=== PATIENT | male | born 1950 | race Caucasian/White ===

== ENCOUNTER 2016-08-20 08:54 | Day surgery (SDC) | payer MEDICARE, OTHER ==
[~2016-08-20] VITALS: Ht 185.4 cm; Wt 114.4 kg
[2016-08-20] VITALS (8 sets, daily range): BP systolic 107–130; BP diastolic 68–86; PULSE 64–79; RESP 16–18; TEMP 97.6–98.1; O2SAT 94–96
[2016-08-20] MEDS ORDERED: MUPIROCIN 2% OINT 1 APPLIC/GM SYR NASAL SCH (09:45)
[2016-08-20] MEDS ORDERED: CHLORHEXIDINE GLUCONATE 2 % 1 PACK (2 CLOTHS) TOPICAL SCH (09:45)
[2016-08-20] MEDS ORDERED: POVIDONE IODINE 5% (ANTISEPSIS KIT) 4 APPLICATIONS EACH NARE SCH (09:45)
[2016-08-20] MEDS ORDERED: NO Heparin, Lovenox, Coumadin at least 12 hours prior to procedure. PRN (09:45)
[2016-08-20] MEDS ORDERED: Hold AM Insulin & AM Hypoglycemic medications in diabetic patients PRN (09:45)
[2016-08-20] MEDS ORDERED: LORazepam 1 MG TAB SL SCH (09:45)
[2016-08-20 09:56] LABS: AUTOMATED NEUTROPHIL # 4.2 TH/MM3 (1.8-7.7); BASOPHIL # 0.1 TH/MM3 (0-0.2); BASOPHIL % 1.1 % (0.0-2.0); EOSINOPHIL # 0.4 TH/MM3 (0-0.4); EOSINOPHIL % 5.5 % (0.0-4.0); HEMATOCRIT 43.3 % (39.0-51.0); HEMO FLAGS DIFF FINAL; LYMPHOCYTE # 1.9 TH/MM3 (1.0-4.8); MEAN CELL VOLUME 86.8 FL (80.0-100.0); MEAN CORPUSCULAR HEMOGLOBIN 28.5 PG (27.0-34.0); MEAN CORPUSCULAR HGB CONC 32.8 % (32.0-36.0); MONO % 8.8 % (0.0-8.0); NEUT % 58.6 % (16.0-70.0); PLATELET COUNT 165 TH/MM3 (150-450); RED BLOOD COUNT 4.99 MIL/MM3 (4.50-5.90); RED CELL DISTRIBUTION WIDTH 13.5 % (11.6-17.2); WHITE BLOOD COUNT 7.2 TH/MM3 (4.0-11.0)
[2016-08-20] MEDS ORDERED: LACTATED RINGER'S 1000 ML IV PRN (10:00)
[2016-08-20] MEDS ORDERED: INSULIN HUMAN REGULAR 1,000 UNITS/10 ML VIAL SQ PRN (10:00)
[2016-08-20] MEDS ORDERED: CHLORHEXIDINE GLUCONATE 2 % 1 PACK (2 CLOTHS) TOPICAL PRN (10:00)
[2016-08-20] MEDS ORDERED: SODIUM CHLORID 0.9% 500 ML IV PRN (10:00)
[2016-08-20] MEDS ORDERED: METOPROLOL TARTRATE 25 MG TAB PO PRN (10:00)
[2016-08-20] MEDS ORDERED: POVIDONE IODINE 5% (ANTISEPSIS KIT) 4 APPLICATIONS EACH NARE PRN (10:00)
[2016-08-20] MEDS ORDERED: SIMV10TA PO (10:03)
[2016-08-20] MEDS ORDERED: OMEGCAP PO (10:03)
[2016-08-20] MEDS ORDERED: CITA20TA4 PO (10:03)
[2016-08-20] MEDS ORDERED: METO25TA3 PO (10:03)
[2016-08-20] MEDS ORDERED: LORA-373 PO (10:03)
[2016-08-20] MEDS ORDERED: DILT120C9 PO (10:03)
[2016-08-20] MEDS ORDERED: BENA20TA PO (10:03)
[2016-08-20] MEDS ORDERED: MOBI7.5T PO (10:03)
[2016-08-20] MEDS ORDERED: ROFL1TAB2 PO (10:03)
[2016-08-20] MEDS ORDERED: ADVA45AE INH (10:03)
[2016-08-20] MEDS ORDERED: APIX5TAB PO (10:03)
[2016-08-20] MEDS ORDERED: OMEP20TA PO (10:03)
[2016-08-20 10:04] LABS: APTT (PATIENT) 27.2 SEC (24.3-30.1); PROTHROMBIN TIME - PATIENT 10.9 SEC (9.8-11.6)
[2016-08-20 10:17] LABS: BICARBONATE 26.9 MEQ/L (21.0-32.0); POTASSIUM 4.2 MEQ/L (3.5-5.1)
[2016-08-20] MEDS ORDERED: FUROSEMIDE 40 MG/4 ML VIAL ONE (11:06)
[2016-08-20] MEDS ORDERED: HEPARIN-D5W INJ 250 ML ONE (11:06)
[2016-08-20] MEDS ORDERED: ISOPROTERENOL HCL 1 MG/5 ML AMP ONE (11:06)
[2016-08-20] MEDS ORDERED: PROTAMINE SULFATE 50 MG/5 ML VIAL ONE (11:07)
[2016-08-20] MEDS ORDERED: MIDAZOLAM HCL 2 MG/2 ML VIAL ONE (11:07)
[2016-08-20] MEDS ORDERED: LEVOFLOXACIN 500 MG PREMIX INJ 100 ML IV ONE (11:07)
[2016-08-20] MEDS ORDERED: HEPARIN SODIUM - IV 10,000 UNITS/10 ML VIAL ONE (11:07)
[2016-08-20] MEDS ORDERED: SODIUM CHLOR 0.9% 250 ML INJ 250 ML ONE (11:07)
[2016-08-20] MEDS ORDERED: fentaNYL CITRATE 250 MCG/5 ML AMP ONE (11:07)
--- NOTE | 2016-08-20 14:07 | CATHPROC ---
[employer] HIS Report Study Information Study Number Scheduled Start Study Start [id number] 08/20/2016 Aug 20 2016 11:08AM Referring Institution Admit Source Facility Department 1 Other [facility] Physician and Clinical Staff Initial Crystal Aguirre Openstack Developer Roberta Clark,RT(R) TECH2 Openstack Developer Karen Cuenca,OPERATIONS DISPATCHER TECH2 Other Anesthesia, GIS MANAGER Recorder Farhana Barnes,RN Recorder Rozina Lebron,MADDIE Scrub Leonel Alcantara,RT(R) Procedures Performed Procedure Location (Site) Vessel Name Ablation Procedure CRYO Ablation LIPV LIPV CRYO Ablation LSPV LSPV CRYO Ablation RIPV RIPV CRYO Ablation RSPV RSPV ICE CATHETER INSERT RA Atruim Equipment Time Bear Keeper Description Size Mfg Part Number Used/Scraped COPILOT VALVE, BLEEDBACK [id number] 11:27 [employer] Used CONTROL *[id number] TRANSDUCER, TRUWAVE 11:27 [employer] * [id number] Used W/STOCKCOCK NEEDLE, TRANSSEPTAL NRG 98 11:27 [facility] [id number] Used C1 COVER, TRANSDUCER CABLE 11:27 [employer] [id number] Used ACUNAV 11:27 CONMED LEADWIRE, DEFIBRILLATION PAD 2001M-PC Used SHEATH SET, FR12 CHECK-BERE [id number]-[id number]-[id number] 11:27 COOK/PACER FR12 Used 13CM *[id number] 11:27 CORDIS/PACER SHEATH, FR10 PARVEEN 11CM FR 10 [id number] Used [id number] 11:27 [employer] INDUSTRIES PACK, CCL CUSTOM * Used *[id number] 11:27 [employer] PACER BERTRAND, LIMB * 2530 Used [id number] 11:27 [employer] MEDICAL SHEATH, FR4.5 PRELUDE 11CM FR 4.5 Used [id number] 11:27 [employer] MEDICAL WIRE, 3MMJ .035 180CM 180CM Used *[id number] 11:27 NAMIC MANIFOLD, 4 PORT * Used *[id number] 11:27 NAMIC TUBING, HIGH PRESSURE 20" 20" Used *[id number] 11:27 NAMIC TUBING, HIGH PRESSURE 48" 48" Used *[id number] 11:27 NAMIC TUBING, HIGH PRESSURE 48" 48" Used *[id number] TUBING, PRESSURE MONITORING [id number] 11:27 NAMIC PACER 72" Used 72" *[id number] 11:27 [employer] BLANKET,WARM AIR CCL * Used *[id number] 536281 11:27 [facility] [employer] CATHETER, JSN, QUAD FR 5 Used *[id number] 384023 11:27 [employer] MED[employer] CATHETER, JSN, QUAD FR 5 Used *[id number] 11:27 [employer] MEDICAL ELECTRODE KIT, ANGELIA X SURFACE * [id number] Used 11:27 [employer] SHEATH, EPS, FR6 FAST CATH FR 6 [id number] Used 11:27 [facility] [employer] SHEATH, EPS, FR7 FAST CATH FR 7 [id number] Used 11:27 [facility] [employer] SHEATH, EPS, FR8 FAST CATH FR 8 [id number] Used CATHETER, ACUNAV FR10 ICE [id number] 12:30 KEVIN FR 10 Used (KEVIN) *[id number] [facility] PAD, ELECTROSURGICAL 11:27 * [id number] Used SURGICAL GROUNDING (BLUE) 12:43 [employer] CABLE, ACHIEVE MAPPING * [id number] Used CATHETER, ACHEIVE MAPPING 12:43 [employer] * [id number] Used 20MM SHEATH, FR12 FLEXCATH 12:36 [employer] FR 12 [id number] Used STEERABLE Medication Medication Total Dose (Bolus/Oral) Medication Total Dosage/Unit 1% XYLOCAINE 40 mL HEPARIN 46522 units Medications (Bolus/Oral) Medication Time Given Dosage/Unit Administered By Reason 1% XYLOCAINE 08/20/2016 12:20:02 PM 20 mL Crystal Willson 20 mL 1% XYLOCAINE given in lab by Crystal Willson in Left Groin via Subcutaneous. 1% XYLOCAINE 08/20/2016 12:24:45 PM 20 mL Crystal Willson 20 mL 1% XYLOCAINE given in lab by Crystal Willson in Right Groin via Subcutaneous. HEPARIN 08/20/2016 12:28:31 PM 09829 units Anesthesia, GIS MANAGER 86457 units HEPARIN given in lab by Anesthesia, GIS MANAGER via Peripheral IV. Ordered by Crystal Willson. HEPARIN 08/20/2016 12:45:55 PM 2000 units Anesthesia, GIS MANAGER 2000 units HEPARIN given in lab by Anesthesia, GIS MANAGER via Peripheral IV. Ordered by Crystal Willson. HEPARIN 08/20/2016 1:03:00 PM 2000 units Anesthesia, GIS MANAGER 2000 units HEPARIN given in lab by Anesthesia, GIS MANAGER via Peripheral IV. Ordered by Crystal Willson. Medication (Drip) Medication Time Given Dosage/Unit Concentration/Unit Diluent (ml) Solution HEPARIN DRIP 08/20/2016 12:45:55 PM 1000 units/hr 97803 units 250 NaCl .9 1000 units/hr HEPARIN DRIP given in lab by Anesthesia, GIS MANAGER via Peripheral IV. Pump/Drip Flow = 10 ml /hr using NaCl .9 [place] [address] units in 250 ml. Ordered by Crystal Willson. ISUPREL 08/20/2016 1:44:03 PM 20 mcg/min 1 mg 250 NaCl .9 20 mcg/min ISUPREL given in lab by Anesthesia, GIS MANAGER via Peripheral IV. Pump/Drip Flow = 300 ml/hr usi ng NaCl .9 with a concentration of 1 mg in 250 ml. Ordered by Crystal Willson. Initial Case Assessment Cardiovascular HR Rhythm NIBP Chest Pain 65 REGULAR 140/83 0 Edema Present Skin color Skin None Normal Warm Dry Neurological State Oriented to time-place- Alert Moves all extremities person Respiration - General Respiration Rate SpO2 (%) (B/min) 16 97 Final Case Assessment Cardiovascular HR Rhythm NIBP Chest Pain 87 REGULAR 96/54 0 Edema Present Skin color Skin None Normal Warm Dry Neurological State Oriented to time-place- Alert Moves all extremities person Respiration - General Respiration Rate SpO2 (%) O2 (lpm) (B/min) 14 98 4 Chronological Log Time Study Chronological Log 11:30:40 Anesthesia at bedside. Assumes care of patient. 11:30:40 Patient arrived via Bed. 11:30:45 Patient Name, D.O.B, / Armband Verified By R.N. 11:30:48 Consent signed by the physician and the patient and verified by the [facility] staff. 11:30:50 Pre-op and post- op instructions given; patient acknowledges understanding of instructions. 11:31:00 Verbal Stimulation=2 Physical Stimulation=2 Airway=2 Respiration=2 TOTAL=2. (0=absent, 1=li mited, 2=present) 11:31:02 Patient has been NPO for More than 6Hrs. 11:31:05 Skin Breakdown-NONE PER PT 11:32:00 Patient Warmer Placed on the Table. 11:32:05 Disposable Defibrillator Pads Placed On Patient. 11:32:06 Jose Prominences Protected 11:36:43 A # 20 IV was noted in the Antecubital (left). Grade = 0 11:36:51 A # 20 IV was noted in the Antecubital (right). Grade = 0 11:36:58 History and physical on the chart or being dictated. 11:36:59 Table restraints applied according to hospital policy Assessment: Initial Case, HR=65 BPM, Rhythm=REGULAR, XHNL=896/83 mmhg, Chest Pain=0, Edema=None , Color=Normal, Skin = Warm, Dry 11:37:05 Neurological: State=Alert, Ox3, RODARTE Respiration: Resp=16 B/min, SpO2=97 % 11:44:00 14FR NELSON INSERTED PER MD ORDER. CLEAR YELLOW DRAINAGE NOTED. NELSON SECURED TO LEFT THIGH. 11:48:14 Bilateral groins prepped with 2% chlorhexidine, and with a 3 min. waiting time. Time Out. Correct patient, procedure, procedure equipment, site and side verified with physicia n present. Time 12:07:28 concurred by MD, individual staff and GIS MANAGER. Time Out #2 - Consents verified, patient in correct position, all results are labled and displa yed, safety precautions 12:07:34 taken, antibiotics administered. Time out concurred by MD, individual staff and GIS MANAGER in procedu re 12:08:10 Case Start 12:08:11 BOBBY IN PROGRESS 12:14:15 BOBBY COMPLETE 12:17:47 Pressure channel 1 zeroed. 12:20:02 20 mL 1% XYLOCAINE given in lab by Crystal Willson in Left Groin via Subcutaneous. 12:21:11 Vascular access was obtained in the Fem Vein (left). 12:22:12 Vascular access was obtained in the Fem Vein (left). 12:22:13 Vascular access was obtained in the Fem Vein (left). 12:22:19 Vascular access was obtained in the Fem Art (left). 12:22:58 A SHEATH, EPS, FR6 FAST CATH FR 6 was advanced into the Fem Vein (left) using the Modified Seldinger technique. 12:23:44 A SHEATH, EPS, FR7 FAST CATH FR 7 was advanced into the Fem Vein (left) using the Modified Seldinger technique. 12:23:48 A SHEATH, FR10 PARVEEN 11CM FR 10 was advanced into the Fem Vein (left) using the Modified S eldinger technique. 12:24:32 A SHEATH, FR4.5 PRELUDE 11CM FR 4.5 was advanced into the Fem Art (left) using the Modified Seldinger technique. 12:24:45 20 mL 1% XYLOCAINE given in lab by Crystal Willson in Right Groin via Subcutaneous. 12:28:11 A SHEATH, EPS, FR8 FAST CATH FR 8 was advanced into the Fem Vein (right) using the Modified Seldinger technique. 12:28:31 07368 units HEPARIN given in lab by Anesthesia, GIS MANAGER via Peripheral IV. Ordered by Sathish Willson. A CATHETER, JSN, QUAD FR 5 was advanced vis Fem Vein (left) and placed in the CS. Placement was visually 12:29:14 confirmed under fluoroscopy. A CATHETER, JSN, QUAD FR 5 was advanced vis Fem Vein (left) and placed in the HIS. Placement wa s visually 12:29:28 confirmed under fluoroscopy. 12:29:34 CATHETER, ACUNAV FR10 ICE (R&L) FR 10 Was Postioned. A SHEATH, FR12 FLEXCATH STEERABLE FR 12 was exchanged in the Fem Vein (right). This was necessa ry in order to 12:29:55 achieve vascular hemostasis. 12:30:31 BAYLIS NEEDLE INSERTED 12:32:40 A eps was advanced to the right atrium and passed through the septal wall to the left atriu m. 12:33:50 BAYLIS REMOVED 12:39:07 Activated Clotting Time Drawn 12:43:26 Reference ECG taken 12:45:16 ACT (Normal Range 90-180) = 305 12:45:55 2000 units HEPARIN given in lab by Anesthesia, GIS MANAGER via Peripheral IV. Ordered by Stephen Willson. 1000 units/hr HEPARIN DRIP given in lab by Anesthesia, GIS MANAGER via Peripheral IV. Pump/Drip Flow = 10 ml/hr using NaCl 12:45:55 .9 [place] [address] units in 250 ml. Ordered by Crystal Willson. A CATHETER, ACHEIVE MAPPING 20MM * was advanced vis Fem Art (right) and placed in the LA. Place ment was 12:56:00 visually confirmed under fluoroscopy. 12:56:22 Cryo Ablation of the LSPV with a balloons. 1ST FREEZE 13:01:49 Cryo Ablation of the LSPV with a balloons. 2ND FREEZE 13:02:18 ACT (Normal Range 90-180) = 309 13:03:00 2000 units HEPARIN given in lab by Anesthesia, GIS MANAGER via Peripheral IV. Ordered by Sathish Willson. 13:07:10 Cryo Ablation of the LIPV with a balloons. 1ST FREEZE ABORTED 13:17:00 Cryo Ablation of the LIPV with a balloons. 2ND FREEZE 13:17:15 ACT (Normal Range 90-180) = 351 13:18:49 Cryo Ablation of the LIPV with a balloons. 3RD FREEZE 13:26:43 Cryo Ablation of the RIPV with a balloons. 1ST FREEZE ABORTED 13:30:09 Cryo Ablation of the RIPV with a balloons. 2ND FREEZE 13:32:31 Cryo Ablation of the RIPV with a balloons. 3ND FREEZE ABORTED 13:34:51 Cryo Ablation of the RSPV with a balloons. 1ST FREEZE 13:39:41 Cryo Ablation of the RSPV with a balloons. 2ND FREEZE 20 mcg/min ISUPREL given in lab by Anesthesia, GIS MANAGER via Peripheral IV. Pump/Drip Flow = 300 ml /hr using NaCl .9 13:44:03 with a concentration of 1 mg in 250 ml. Ordered by Crystal Willson. 13:52:06 ISUPREL DC'D 13:56:52 PACU called. Spoke to YONATHAN 13:57:02 Catheter(s) removed without difficulty A SHEATH SET, FR12 CHECK-BERE 13CM FR12 was exchanged in the Fem Vein (right). This was necessa ry in order to 13:57:10 minimize site leakage. 14:00:00 Case End 14:03:56 Sheath(s) SUTURED in place, will be removed in Holding Area 14:04:20 Sterile dressing applied to site 14:04:46 Cine recording checked. 14:04:48 Bedside Report will be given. 14:05:12 Defibrillator and ground pads removed. Skin intact. 14:05:19 Ablation procedure performed: AFIB. Assessment: Final Case, HR=87 BPM, Rhythm=REGULAR, NIBP=96/54 mmhg, Chest Pain=0, Edema=None, Color=Normal, Skin = Warm, Dry 14:06:14 Neurological: State=Alert, Ox3, RODARTE Respiration: Resp=14 B/min, SpO2=98 %, O2=4 lpm 14:12:06 Patient moved to stretcher End Study - Contrast Media Used In Study Contrast Total Opened (mL) Total Used (mL) Total Wasted (mL) Unspecified 0 0 0 End Study - Radiation Exposure Fluoro Time (minutes) 8.4 End Study - Patient Disposition Complications Transferred To Interventional Outcome No Telemetry Bed successful
[2016-08-20] MEDS ORDERED: ONDANSETRON HCL 4 MG/2 ML VIAL IV PRN (14:15)
[2016-08-20] MEDS ORDERED: LIDOCAINE HCL 1% 50 ML VIAL INFIL PRN (14:15)
[2016-08-20] MEDS ORDERED: oxyCODONE/ACETAMINOPHEN 5 MG/325 MG TAB PO PRN (14:15)
[2016-08-20] MEDS ORDERED: SODIUM CHLOR 0.9% 250 ML INJ 250 ML IV PRN (14:15)
[2016-08-20] MEDS ORDERED: LORazepam 2 MG/ML VIAL IV PRN (14:15)
[2016-08-20] MEDS ORDERED: METOCLOPRAMIDE HCL 10 MG/2 ML VIAL IV PRN (14:15)
[2016-08-20] MEDS ORDERED: ATROPINE SULFATE 1 MG/ML VIAL IV PRN (14:15)
[2016-08-20] MEDS ORDERED: LORazepam 0.5 MG TAB PO PRN (14:15)
[2016-08-20] MEDS ORDERED: BACITRACIN OINT 0.9 GM PKT TOP ONE (14:15)
--- NOTE | 2016-08-20 14:19 | PD.CARD ---
Atrial Fibrillation Cryo Study PROCEDURE DATE: August 20, 2016 PROCEDURE PERFORMED Electrophysiology study, CS cannulation, 3-D mapping, transeptal approach, right and left heart catheterization, cryoablation and RF ablation of atrial fibrillation, pulmonary vein isolation, posterior ablation, anterior ablation, repeat electrophysiology study on Isuprel infusion, intracardiac echo. Very complex case. INDICATIONS FOR PROCEDURE Mr. Benitez is a 66-year-old male with atrial fibrillation, on multiple medications, on anticoagulation, symptomatic, referred for electrophysiology study and ablation. The risks, the nature and the benefit of the procedure are clearly stated to him. The risks include pneumothorax, cardiac perforation, stroke, need for open heart surgery and even . The patient understood and agreed to proceed. PROCEDURE As written informed consent was obtained prior to esophageal echo, the patient was kept on the table where he was prepped and draped in the usual sterile fashion. Conscious sedation was initiated and throughout the procedure by the anesthesiologist. Once sedation was verified, the right and left inguinal area was anesthetized with 2% Xylocaine. Using modified Seldinger technique, the left femoral vein was cannulated on three occasions and three guidewires were advanced over the wire, one 6, one 7, and one 10-Slovenian Hemaquet were advanced. Then the left femoral artery was done on one occasion, one guidewire was advanced over the wire. A 4-Slovenian Hemaquet was advanced. Then the right femoral vein was cannulated on one occasion and one guidewire was advanced over the wire. An 8-Slovenian Hemaquet was advanced. Then under fluoroscopic guidance through the 6 and 7-Slovenian Hemaquet, two 5- Slovenian Fam curved quadripolar electrophysiology catheters were advanced and positioned on the His as well as coronary sinus. The patient was in sinus rhythm. Basic interval was measured. They were all within normal limits. Then through the 10-Slovenian Hemaquet, a Modustri-Craig AcuNav intracardiac echo catheter was advanced and placed at the right atrium. Multiple views were obtained. There was no pericardial effusion. Pulmonary vein was seen. The atrial septum was visualized. Then the 8-Slovenian Hemaquet in the right femoral vein was exchanged for an Agilis transseptal sheath that was placed all the way to the superior vena cava. Through this sheath a [place] needle was advanced. Then the sheath, the dilator and the needle were pulled back progressively until foci engaged. Once the needle was advanced, RF was delivered for 2 seconds. I was able to cross into the left atrium. Once the needle was crossed, the dilator was advanced. Once the dilator was crossed, the sheath was advanced. Once the sheath crossed , the dilator and needle were removed. An intracardiac echo showed the sheath in good position. The patient already received 10,000 units of heparin. The goal is to get an ACT around 360 during the ablation. Through this sheath a 365 Good Teacher circumferential catheter was advanced. Using [employer] endocardial solution mapping system a three-dimensional configuration of the left atrium was obtained. Points were taken at the left superior and inferior vein, right superior and inferior vein, mitral valve, and appendage. Then at this point I decided to proceed with cryoablation. The circumferential catheter was removed. Through the sheath a 0.035 wire was advanced. I did exchange the Agilis sheath for a Medtronic flex sheath. I decided to use a 28mm balloon. The balloon was advanced over the wire. First I did engage the left superior vein. The balloon was inflated, complete occlusion obtained. CryoEnergy was delivered for 3 and 3 minutes. Temperature reached -52. Then I did engage the left inferior vein, occlusion obtained. Venography showed complete occlusion and CryoEnergy was delivered for 3 and 3 minutes. Temperature was around -48 to -52. Then the right inferior was engaged, complete occlusion obtained. Temperature reach -48 for 3 and 3 minutes. Then the right superior was engaged. Before CryoEnergy of the right veins, the His catheter was placed at the left and the right subclavian. Phrenic nerve pacing was performed. There was diaphragmatic stimulation. That is going to be used for phrenic nerve monitoring during cryoablation. I did cryoablate the right superior vein. There was no loss of phrenic nerve movement , diaphragmatic movement. Phrenic nerve was intact. The temperature dropped to -50 for 3 and 3 minutes. At that point I removed the balloon. The circumferential catheter was advanced into the veins. Pacing from the vein showed no conduction to the atrium. Pacing from the atrium showed no conduction to the veins. Isuprel was infused at 20 Mcg for around 10 minutes. No tachyarrhythmia was induced, no conduction resumed. Post-Isuprel no conduction resumed either. At that point the procedure was complete. All catheters were removed, the transeptal sheath was exchanged for a 12-Slovenian Hemaquet. Intracardiac echo showed pericardial effusion, still good flow in the pulmonary vein. No incident reported. The patient tolerated the procedure. Blood loss minimal. 1. Electrocardiogram: At baseline the patient was in sinus. Postprocedure the patient in sinus. 2. Basic Interval: Base cycle length was around 900 milliseconds. AH 80 HV 60 3. Tachyarrhythmia: Atrial fibrillation was mapped and ablated. Ablation was successful. CONCLUSION Successful electrophysiology study, mapping and radiofrequency ablation of atrial fibrillation, pulmonary vein isolation, posterior and anterior wall ablation, repeat electrophysiology study on Isuprel infusion. COMMENT AND RECOMMENDATIONS The patient is going to be transferred to the telemetry unit, will be observed, and when stable can be discharged home. Crystal Willson MD August 20, 2016 14:18
[2016-08-20] MEDS: METOPROLOL TARTRATE 25 MG TAB PO SCH (20:57)
[2016-08-20] MEDS: APIXABAN 5 MG TABLET PO SCH (20:57)
[2016-08-20] MEDS: oxyCODONE/ACETAMINOPHEN 5 MG/325 MG TAB PO PRN (20:58)
[2016-08-20] MEDS ORDERED: FLUTICASONE INH SCH (21:00)
[2016-08-20] MEDS ORDERED: SALMETEROL INH SCH (21:00)
[2016-08-20] MEDS ORDERED: PRAVASTATIN SOD 20 MG TAB PO SCH (21:00)
[2016-08-21] VITALS (13 sets, daily range): BP systolic 122–131; BP diastolic 75–76; PULSE 68–84; RESP 16–20; TEMP 98.4–98.5; O2SAT 94–96
[2016-08-21 05:38] LABS: APTT (PATIENT) 25.6 SEC (24.3-30.1); PROTHROMBIN TIME - PATIENT 11.4 SEC (9.8-11.6)
[2016-08-21] MEDS: oxyCODONE/ACETAMINOPHEN 5 MG/325 MG TAB PO PRN (06:48)
--- NOTE | 2016-08-21 08:30 | PD.CARD.PN ---
Subjective Subjective Remarks Normal sinus rhythm on telemetry. Feels better. Objective Medications Current Medications Medications (Trade) Dose Ordered Sig/Jen Route Start Time Stop Time Status Last Admin Miscellaneous Information Hold AM Insulin & ... UNSCH PRN .XX 08/20/16 09:45 08/24/16 09:44 Miscellaneous Information NO Heparin, Loven... UNSCH PRN .XX 08/20/16 09:45 08/24/16 09:44 (NS 1000 ml Inj) 1,000 ml @ 30 mls/hr Q24H IV 08/20/16 09:45 (Percocet 5-325 Mg) 1 tab Q4H PRN PO 08/20/16 14:15 08/21/16 06:48 (Percocet 5-325 Mg) 2 tab Q4H PRN PO 08/20/16 14:15 (Ativan Inj) 0.5 mg UNSCH PRN IV 08/20/16 14:15 08/21/16 14:14 Atropine Sulfate 0.5 mg 0.5 mg UNSCH PRN IV 08/20/16 14:15 (NS 250 ml Inj) 250 ml @ 500 mls/hr ONCE PRN IV 08/20/16 14:15 08/21/16 14:14 (Reglan Inj) 10 mg Q4H PRN IV 08/20/16 14:15 (Zofran Inj) 4 mg Q4H PRN IV 08/20/16 14:15 (Xylocaine 1% Inj (50 ml)) 10 ml UNSCH PRN INFIL 08/20/16 14:15 08/21/16 14:14 (Eliquis) 5 mg BID PO 08/20/16 21:00 08/20/16 20:57 (Prinivil) 20 mg DAILY PO 08/21/16 09:00 (CeleXA) 20 mg DAILY PO 08/21/16 09:00 (Ativan) 0.5 mg DAILY PRN PO 08/20/16 14:15 (Mobic) 7.5 mg DAILY PO 08/21/16 09:00 (Lopressor) 25 mg BID PO 08/20/16 21:00 08/20/16 20:57 (Daliresp) 500 mcg DAILY PO 08/21/16 09:00 Patient Own Medication 2 ea BID INH 08/20/16 21:00 Hold (Protonix) 20 mg DAILY PO 08/21/16 09:00 (Pravachol) 20 mg HS PO 08/20/16 21:00 08/20/16 20:57 Vital Signs / I&O Vital Signs Date Time Temp Pulse Resp B/P Pulse Ox O2 Delivery O2 Flow Rate FiO2 08/21/16 07:39 98.5 76 20 122/76 95 08/21/16 06:00 72 08/21/16 05:01 68 08/21/16 04:00 73 08/21/16 03:00 96 Nasal Cannula 2.00 08/21/16 03:00 98.4 71 16 131/75 96 08/21/16 03:00 68 08/21/16 02:14 70 08/21/16 01:01 68 08/21/16 00:00 72 08/20/16 23:00 98.0 79 16 130/72 96 08/20/16 23:00 96 Nasal Cannula 2.00 08/20/16 23:00 65 08/20/16 22:02 16 08/20/16 22:00 76 08/20/16 21:00 76 08/20/16 20:45 Nasal Cannula 2.00 08/20/16 20:00 70 08/20/16 19:00 64 08/20/16 19:00 98.0 73 18 124/80 94 08/20/16 19:00 94 Nasal Cannula 2.00 08/20/16 18:10 66 08/20/16 18:05 97.6 67 16 107/68 94 08/20/16 17:15 67 19 99/59 96 Nasal Cannula 2 08/20/16 16:15 62 19 92/50 96 Nasal Cannula 2 08/20/16 16:00 97.5 63 16 95/57 96 Nasal Cannula 2 08/20/16 15:45 62 19 92/58 95 Nasal Cannula 2 08/20/16 15:30 61 16 90/54 95 Nasal Cannula 2 08/20/16 15:15 61 17 92/54 94 Nasal Cannula 2 08/20/16 15:00 63 13 92/57 96 Nasal Cannula 2 08/20/16 14:55 64 17 94/57 96 Nasal Cannula 2 08/20/16 14:46 66 16 93/58 97 Nasal Cannula 4 08/20/16 14:45 66 19 90/58 97 Nasal Cannula 4 08/20/16 14:42 97.4 71 12 95 08/20/16 14:31 97.4 71 12 102/62 95 Nasal Cannula 4 96 08/20/16 14:30 97.4 71 12 95 08/20/16 09:38 98.1 70 18 129/86 94 I/O 08/20/16 08/20/16 08/20/16 08/21/16 08/21/16 08/21/16 07:00 15:00 23:00 07:00 15:00 23:00 Intake Total 1400 ml 300 ml 1440 ml Output Total 350 ml 400 ml 1800 ml Balance 1050 ml -100 ml -360 ml Intake Oral 250 ml 1440 ml IV Total 50 ml Other 1400 ml Output Urine Total 300 ml 400 ml 1800 ml Estimated Blood Loss 50 ml # Bowel Movements 0 Physical Exam GENERAL: Well-nourished, well-developed patient. SKIN: Warm and dry. Groin sites soft with no bruising or bleeding. HEAD: Normocephalic. EYES: No scleral icterus. No injection or drainage. NECK: Supple, trachea midline. No JVD or lymphadenopathy. CARDIOVASCULAR: Regular rate and rhythm without murmurs, gallops, or rubs. RESPIRATORY: Breath sounds equal bilaterally. No accessory muscle use. GASTROINTESTINAL: Abdomen soft, non-tender, nondistended. EXTREMITIES: No cyanosis, or edema. NEUROLOGICAL: Awake, alert, and oriented x 3. Non-focal. Laboratory Laboratory Tests Test 08/20/16 08/21/16 09:20 04:56 White Blood Count 7.2 TH/MM3 Red Blood Count 4.99 MIL/MM3 Hemoglobin 14.2 GM/DL Hematocrit 43.3 % Mean Corpuscular Volume 86.8 FL Mean Corpuscular Hemoglobin 28.5 PG Mean Corpuscular Hemoglobin 32.8 % Concent Red Cell Distribution Width 13.5 % Platelet Count 165 TH/MM3 Mean Platelet Volume 8.3 FL Neutrophils (%) (Auto) 58.6 % Lymphocytes (%) (Auto) 26.0 % Monocytes (%) (Auto) 8.8 % Eosinophils (%) (Auto) 5.5 % Basophils (%) (Auto) 1.1 % Neutrophils # (Auto) 4.2 TH/MM3 Lymphocytes # (Auto) 1.9 TH/MM3 Monocytes # (Auto) 0.6 TH/MM3 Eosinophils # (Auto) 0.4 TH/MM3 Basophils # (Auto) 0.1 TH/MM3 CBC Comment DIFF FINAL Differential Comment Prothrombin Time 10.9 SEC 11.4 SEC Prothromb Time International 1.0 RATIO 1.0 RATIO Ratio Activated Partial 27.2 SEC 25.6 SEC Thromboplast Time Sodium Level 139 MEQ/L Potassium Level 4.2 MEQ/L Chloride Level 102 MEQ/L Carbon Dioxide Level 26.9 MEQ/L Anion Gap 10 MEQ/L Blood Urea Nitrogen 17 MG/DL Creatinine 0.99 MG/DL Estimat Glomerular Filtration 76 ML/MIN Rate Random Glucose 116 MG/DL Calcium Level 9.1 MG/DL Blood Type O NEGATIVE Antibody Screen NEGATIVE Blood Bank Comment Assessment and Plan Problem List: (1) Atrial fibrillation Assessment and Plan: Normal sinus rhythm, stable status post atrial fibrillation ablation. Continue Eliquis (2) S/P ablation of atrial fibrillation Assessment and Plan: Groin sites stable. Normal sinus rhythm status post ablation. Discharge home, continue anticoagulation. Follow-up with Dr. Willson in 3 weeks per my discussion with him. Problem Qualifiers (1) Atrial fibrillation: Qualified Code: I48.2 - Chronic atrial fibrillation Blanca Veliz August 21, 2016 08:30
[2016-08-21] MEDS ORDERED: ROFLUMILAST 500 MCG TAB PO SCH (09:00)
[2016-08-21] MEDS ORDERED: CITALOPRAM HYDROBROMIDE 20 MG TAB PO SCH (09:00)
[2016-08-21] MEDS ORDERED: PANTOPRAZOLE SOD 20 MG DELAYED RELEASE TAB PO SCH (09:00)
[2016-08-21] MEDS ORDERED: LISINOPRIL 20 MG TAB PO SCH (09:00)
[2016-08-21] MEDS ORDERED: MELOXICAM 7.5 MG TAB PO SCH (09:00)
[2016-08-21] MEDS: APIXABAN 5 MG TABLET PO SCH (09:17)
[2016-08-21] MEDS: METOPROLOL TARTRATE 25 MG TAB PO SCH (09:18)
[2016-08-21] MEDS: NS 1000 ML IV SCH ×2 (09:59→10:10)
--- NOTE | 2016-08-21 21:47 | EKG ---
Date Performed: 08/20/2016 Time Performed: 15:00:03 PTAGE: 66 years EKG: Sinus rhythm MODERATE INTRAVENTRICULAR CONDUCTION DELAY NONSPECIFIC T-WAVE ABNORMALITY BORDERLINE ECG PREVIOUS TRACING : 08/20/2016 09.45 Compared to prior tracing no significant change DOCTOR: Brian Phillips Interpretating Date/Time 08/21/2016 21:46:02
--- NOTE | 2016-08-21 22:02 | EKG ---
Date Performed: 08/20/2016 Time Performed: 09:45:20 PTAGE: 66 years EKG: Sinus rhythm . Normal ECG NO PREVIOUS TRACING DOCTOR: Brian Phillips Interpretating Date/Time 08/21/2016 22:00:37
== END 2016-08-21 11:12 | disposition home or self-care (01) ==
LOC: HDIC 08:54 → HDOC 08:54 → HCIS 17:38 → HDOC 08-21 11:12
PROVIDERS: ATTEND Internal Medicine Interventional Cardiology
DX: I48.2 Chronic atrial fibrillation (principal); I10 Essential (primary) hypertension; J44.9 Chronic obstructive pulmonary disease, unspecified; E11.9 Type 2 diabetes mellitus without complications; Z79.01 Long term (current) use of anticoagulants
CPT/HCPCS: 00537; 80048; 85002; 85025; 85610; 85730; 86850; 86900; 86901; 93005; 93312; 93320; 93325; 93613; 93623; 93656; 93662; C1730; C1731; C1732; C1733; C1759; J1644; J1956; J2250; J2720; J3010; J7050; J1940